=== PATIENT | female | born 1940 | race Two or more races ===

== ENCOUNTER 2024-09-15 21:02 | Emergency (ER) | payer OTHER, MEDICAID ==
[~2024-09-15] VITALS: Ht 152.4 cm; Wt 45.4 kg
[2024-09-15 21:28] VITALS: TEMP 97.8
[2024-09-15 21:34] LABS: PLATELET COUNT (AUTO) 358 K/uL (150-450); RED BLOOD CELL COUNT(AUTO) 4.21 MIL/uL (4.0-5.2); RED CELL DISTRIBUTION WIDTH 14.8 % (11.5-15.0); WHITE BLOOD COUNT (AUTO) 6.0 K/uL (4.3-11.0)
[2024-09-15 21:42] LABS: CALCIUM, SERUM 8.5 mg/dL (8.5-10.1); CREATININE 0.9 mg/dL (0.6-1.3); SODIUM SERUM 133 mmol/L (136-145); UREA NITROGEN, BLOOD 17 mg/dL (7-18)
[2024-09-15 21:48] LABS: ASPARTATE AMINOTRANSFERASE 20 U/L (15-37); TOTAL PROTEIN, SERUM 7.0 g/dL (6.4-8.2)
[2024-09-15 23:15] LABS: APPEARANCE,URINE CLEAR (CLEAR); BLOOD, URINE NEGATIVE Ery/uL (NEGATIVE); LEUKOCYTE ESTERASE ,URINE TRACE (NEGATIVE); NITRITE, URINE NEGATIVE (NEGATIVE); UGLUCOSE NEGATIVE (NEGATIVE)
[2024-09-15 23:37] LABS: ADD URINE CULTURE NO; SQUAMOUS EPITHELIAL CELL,UR Few /HPF (None Seen)
[2024-09-15 23:39] LABS: ALCOHOL, BLOOD < 3 mg/dL (0-10)
[2024-09-16 01:04] VITALS: BP 183/77; O2SAT 96
== END 2024-09-16 01:50 | disposition short-term general hospital (02) ==
LOC: ER 21:04
DX: R41.0 Disorientation, unspecified (principal); R44.2 Other hallucinations; I10 Essential (primary) hypertension; G89.29 Other chronic pain; E87.8 Other disorders of electrolyte and fluid balance, not elsewhere classified; E87.1 Hypo-osmolality and hyponatremia; R06.02 Shortness of breath
CPT/HCPCS: 36415; 70450-TC; 71045-TC; 80048-TC; 80076-TC; 81001; 83690-TC; 83880; 84443-TC; 84484-TC; 85025-TC; G0480